=== PATIENT | female | born 2005 | race Caucasian/White ===

== ENCOUNTER 2023-01-06 18:23 | Emergency (ER) | payer OTHER ==
[~2023-01-06] VITALS: Ht 172.7 cm; Wt 97.5 kg
[2023-01-06 18:31] VITALS: BP 142/96
--- NOTE | 2023-01-06 18:53 | NUR ---
SWABS COLLECTED AND TAKEN TO LAB. PT BACK TO PATY.
[2023-01-06] MEDS ORDERED: AMOXICILLIN 500 MG CAP PO ONE (19:10)
[2023-01-06] MEDS ORDERED: DEXAMETHASONE 10 MG/ML VIAL IM ONE (19:10)
[2023-01-06] MEDS ORDERED: KETOROLAC 30 MG/ML VIAL IM ONE (19:10)
[2023-01-06] MEDS ORDERED: AMOX500C25 PO (19:13)
[2023-01-06] MEDS ORDERED: PRED20TA5 PO (19:13)
[2023-01-06] MEDS ORDERED: IBUP-2213 PO (19:13)
[2023-01-06] MEDS ORDERED: KETOROLAC 30 MG/ML VIAL IVP ONE (19:20)
[2023-01-06] MEDS ORDERED: NACL 0.9% 1,000 ML IV ONE (19:20)
[2023-01-06] MEDS ORDERED: DEXAMETHASONE 10 MG/ML VIAL IVP ONE (19:20)
--- NOTE | 2023-01-06 20:00 | NUR ---
ASSUMED CARE OF PT AT THIS TIME. PT IN POSITION OF COMFORT. PT A&OX4, RR EVEN AND UNLABORED. PT WILL BE DISCHARGED AFTER INFUSION OF CURRENT FLUIDS HANGING. VSS. NO S/S OF DISTRESS NOTED AT THIS TIME.
[2023-01-06 21:33] VITALS: BP 122/70
--- NOTE | 2023-01-06 21:33 | NUR ---
Patient discharged with v/s stable. Written and verbal after care instructions given and explained. Patient alert, oriented and verbalized understanding of instructions. Ambulatory with steady gait. All questions addressed prior to discharge. ID band removed. Patient advised to follow up with PMD. Rx of AMOXICILLIN, IBUPROFEN, PREDNISONE given. IV dc'd, catheter intact. Small pressure dressing applied. Patient educated on indication of medication including possible reaction and side effects. Opportunity to ask questions provided and answered.
== END 2023-01-06 21:33 | disposition home or self-care (01) ==
LOC: MED 18:23
DX: J02.8 Acute pharyngitis due to other specified organisms (principal); B96.89 Other specified bacterial agents as the cause of diseases classified elsewhere; Z20.822 Contact with and (suspected) exposure to COVID-19; Z79.899 Other long term (current) drug therapy; Z79.1 Long term (current) use of non-steroidal anti-inflammatories (NSAID); Z79.2 Long term (current) use of antibiotics
CPT/HCPCS: 87081; 87426; 87804; 96361; 96374; 96375; 99284; J1100; J1885; J7030